=== PATIENT | female | born 1990 | race Caucasian/White ===

== ENCOUNTER 2019-10-06 10:20 | Emergency (ER) | payer MEDICAID, OTHER ==
[~2019-10-06] VITALS: Ht 177.8 cm; Wt 62.1 kg
[2019-10-06 10:29] VITALS: BP 96/41
[2019-10-06] MEDS ORDERED: methylPREDNISolone SOD SUCC 125 MG/2 ML VL IM ONE (10:45)
[2019-10-06] MEDS ORDERED: EPINEPHrine HCL 1 MG/1 ML AMP SC ONE (10:45)
== END 2019-10-06 11:35 | disposition home or self-care (01) ==
LOC: ER 10:20
DX: T78.40XA Allergy, unspecified, initial encounter (principal); Z88.0 Allergy status to penicillin; X58.XXXA Exposure to other specified factors, initial encounter
CPT/HCPCS: 96372; 99284; J0171; J2930

== ENCOUNTER 2019-10-09 10:50 | Emergency (ER) | payer MEDICAID ==
[~2019-10-09] VITALS: Ht 177.8 cm; Wt 62.1 kg
[2019-10-09] MEDS ORDERED: methylPREDNISolone SOD SUCC 125 MG/2 ML VL IM ONE (14:00)
[2019-10-09] MEDS ORDERED: EPINEPHrine HCL 1 MG/1 ML AMP SC ONE (14:00)
[2019-10-09 14:49] VITALS: BP 134/85
== END 2019-10-09 14:28 | disposition home or self-care (01) ==
LOC: ER 10:50
DX: T78.40XA Allergy, unspecified, initial encounter (principal); X58.XXXA Exposure to other specified factors, initial encounter
CPT/HCPCS: 96372; 99284; J0171; J2930

== ENCOUNTER 2022-03-03 08:44 | Emergency (ER) | payer MEDICAID ==
[~2022-03-03] VITALS: Ht 177.8 cm; Wt 66.3 kg
[2022-03-03 12:45] VITALS: BP 126/74
[2022-03-03] MEDS ORDERED: IBUP600T27 PO (12:59)
[2022-03-03] MEDS ORDERED: DICL500C76 PO (12:59)
[2022-03-03] MEDS ORDERED: BACDST PO (14:19)
== END 2022-03-03 13:10 | disposition home or self-care (01) ==
LOC: ER 08:44
DX: N61.0 Mastitis without abscess (principal); Z88.0 Allergy status to penicillin

== ENCOUNTER 2022-06-20 18:37 | Emergency (ER) | payer MEDICAID ==
[~2022-06-20 18:37] MED LIST: BACDST PO; IBUP600T27 PO
== END 2022-06-20 19:47 | disposition left against medical advice (07) ==
LOC: ER 18:37
DX: N64.4 Mastodynia (principal); Z53.21 Procedure and treatment not carried out due to patient leaving prior to being seen by health care provider